=== PATIENT | female | born 1995 | race Caucasian/White ===

== ENCOUNTER → 2017-04-26 23:25 | Observation (INO) ==
--- NOTE | 2017-04-26 23:21 | OB/GYN Progress Note ---
Date of Encounter: 04/26/17 Time of Encounter: 23:18 - Assessment and Plan (1) 28 weeks gestation of Current Visit: Yes Status: Acute Pt follows Ok to discharge home, with labor precautions Subjective - Subjective Interval history: Ms. Knutson is a 22 yo at 28+3 presenting for complaint of decreased movement. Pt states she experienced temporary light spotting three days ago, but denies vaginal bleeding. States that during admission, she now senses and increased movement. Antepartum ROS: no loss of fluid, no vaginal bleeding, no contractions Objective - Vital Signs Vital Signs: Intake and Output 04/26/17 04/26/17 04/26/17 07:59 15:59 23:59 Other: Weight 120.3 kg Patient Weight 04/26/17 23:59 Weight 120.3 kg - Exam FHR: category 1
--- NOTE | 2017-04-26 23:23 | Discharge Summary ---
Date of Encounter: 04/26/17 Time of Encounter: 23:23 - Discharge Medications Home Medications: Gabapentin Enacarbil 04/26/17 [History] Allergies/Adverse Reactions: Allergies amitriptyline [From Elavil] Allergy (Verified 04/26/17 23:05) Hives Amoxicillin Allergy (Verified 04/26/17 23:05) Hives hydroxyzine [From Vistaril] Allergy (Verified 04/26/17 23:05) Hives ranitidine [From Zantac] Allergy (Verified 04/26/17 23:05) See Comments Date of admission: 04/26/17 22:48 Discharging clinician: Brook Carson Anticipated date of discharge: 04/26/17 - Patient Status Disposition: Home, Self-Care Condition: Good - Discharge Instructions Follow Up With: Brenda Melissa MD [Non-Partnered Physician] - - Diet and Activity Activity: increase activity as tolerated Diet: regular diet Hospital Course [employer] Hospital course: Patient is 22 y/o at 28w3d presents to labor and delivery with c/o decreased movement since Monday. Patient state she called Dr. Melissa's office and was told to come to closest ER for evaluation. Patient denies contractions, LOF or VB. Since admission patient has felt movement. Patient reports her placenta in anterior. Discussed kick counts and reactive nst. Time Attestation: Total time spent providing and/or coordinating discharge services: Time Spent: Less than 30 minutes Exam - Constitutional General appearance IM: A&O X 3, pleasant, answers questions appropriately - Other Additional findings: FHR 145 bpm moderate variability +15x15 accels no decels noted. no contractions. Reactive NST. - VTE Reasons for not Prescribing Prophylaxis: Treatment not Indicated - Low risk for VTE
== END | disposition home or self-care (01) ==
LOC: 1NENULAB
PROVIDERS: ADMIT Advanced Practice Midwife; ATTEND Advanced Practice Midwife